=== PATIENT | male | born 1970 | race Caucasian/White ===

== ENCOUNTER 2018-11-15 21:53 | Emergency (ER) | payer SELFPAY ==
--- NOTE | 2018-11-15 22:14 | Emergency Department Report ---
ED General Adult HPI - General Stated complaint: LT TESTICULAR SWELLING AND PAIN Time Seen by Provider: 11/15/18 22:10 - History of Present Illness Initial comments: 48-year-old male with no past medical history presents with a complaint of left testicular swelling. Patient states he's noticed testicular swelling for the past 6 months. Patient states that he's had increasing pain however over the past 24 hours. Patient states he has only taken Tylenol without relief. Patient denies any hematuria or dysuria. Patient states that when he feels the pain feels a tightness in his left lower extremity. Patient denies any fever or chills or vomiting. 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 - Related Data Previous Rx's Medication Instructions Recorded Last Taken Type traMADol [Ultram] 50 mg PO Q6HR PRN #20 tablet 11/16/18 Unknown Rx Allergies Allergy/AdvReac Type Severity Reaction Status Date / Time No Known Allergies Allergy Unverified 11/15/18 22:08 ED Review of Systems ROS: Stated complaint: LT TESTICULAR SWELLING AND PAIN Other details as noted in HPI Constitutional: denies: chills, fever Eyes: denies: eye pain, eye discharge, vision change ENT: denies: ear pain, throat pain Respiratory: denies: cough, shortness of breath, wheezing Cardiovascular: denies: chest pain, palpitations Endocrine: no symptoms reported Gastrointestinal: denies: abdominal pain, nausea, diarrhea Genitourinary: testicular pain Musculoskeletal: denies: back pain, joint swelling, arthralgia Skin: denies: rash, lesions Neurological: denies: headache, weakness, paresthesias Psychiatric: denies: anxiety, depression Hematological/Lymphatic: denies: easy bleeding, easy bruising ED Past Medical Hx - Medications Home Medications: Home Medications Medication Instructions Recorded Confirmed Last Taken Type traMADol [Ultram] 50 mg PO Q6HR PRN #20 tablet 11/16/18 Unknown Rx ED Physical Exam - General General appearance: alert, other (mildly uncomfortable;) - Head Head exam: Present: atraumatic, normocephalic - Eye Eye exam: Present: normal appearance - ENT ENT exam: Present: mucous membranes moist - Neck Neck exam: Present: normal inspection - Respiratory Respiratory exam: Present: normal lung sounds bilaterally. Absent: respiratory distress - Cardiovascular Cardiovascular Exam: Present: regular rate, normal rhythm. Absent: systolic murmur, diastolic murmur, rubs, gallop - GI/Abdominal GI/Abdominal exam: Present: soft, normal bowel sounds - Rectal Rectal exam: Present: deferred - exam: Present: scrotal swelling (irreducible hernia present in left inguinal region leading to testicle) - Extremities Exam Extremities exam: Present: normal inspection - Back Exam Back exam: Present: normal inspection - Neurological Exam Neurological exam: Present: alert, oriented X3 - Psychiatric Psychiatric exam: Present: normal affect, normal mood - Skin Skin exam: Present: warm, dry, intact, normal color. Absent: rash ED Course Vital Signs 11/15/18 11/16/18 11/16/18 22:09 00:42 00:57 Temperature 98.2 F Blood Pressure 132/85 122/83 11/16/18 11/16/18 11/16/18 01:12 01:27 01:57 Temperature Blood Pressure 126/74 124/80 118/80 11/16/18 11/16/18 11/16/18 02:12 02:27 02:42 Temperature Blood Pressure 127/58 122/71 115/73 ED Medical Decision Making - Lab Data Result diagrams: 11/15/18 22:54 11/15/18 22:54 - Medical Decision Making Patient received [place] for pain relief. Patient feels improved. Patient to be discharged to follow up with urology as an outpatient. - Differential Diagnosis Testicular Torsion; Epididymitis; Critical care attestation.: If time is entered above; I have spent that time in minutes in the direct care of this critically ill patient, excluding procedure time. ED Disposition Clinical Impression: Hydrocele Disposition: DC-01 TO HOME OR SELFCARE Is pt being admited?: No Does the pt Need Aspirin: No Condition: Stable Instructions: Hydrocele (ED), Testicle Pain (ED) Prescriptions: traMADol [Ultram] 50 mg PO Q6HR PRN #20 tablet PRN Reason: Pain Time of Disposition: 04:44 Print Language: AZERI
[2018-11-15] MEDS ORDERED: NORCO 5/325 PO ONE (22:44)
[2018-11-15 23:07] LABS: Hematocrit 40.4 % (35.5-45.6); Hemoglobin 13.6 gm/dl (11.8-15.2); Mean Corpuscular HGB Conc 34 % (32-34); Mean Corpuscular Hemoglobin 32 pg (28-32); Mean Corpuscular Volume 96 fl (84-94); Platelet Count 193 K/mm3 (140-440); Red Blood Count 4.22 M/mm3 (3.65-5.03); Red Cell Distribution Width 13.2 % (13.2-15.2)
[2018-11-15 23:18] LABS: INR 1.02 (0.87-1.13)
[2018-11-15 23:21] LABS: Partial Thromboplastin Time 28.1 Sec. (24.2-36.6)
[2018-11-15 23:23] LABS: Alanine Aminotransferase 30 units/L (7-56); Albumin 3.9 g/dL (3.9-5); BUN/Creatinine Ratio 24; Blood Urea Nitrogen 12 mg/dL (9-20); Calcium 8.8 mg/dL (8.4-10.2); Hemolysis Index 8
--- NOTE | 2018-11-16 01:03 | Cat Scan Report ---
CT ABDOMEN AND PELVIS WITHOUT CONTRAST HISTORY: Lower abdominal pain. Left groin pain for 6 months. Worsening pain this past week. COMPARISON: No relevant prior imaging study available. TECHNIQUE: Axial, coronal and sagittal CT imaging of the abdomen and pelvis was performed without IV contrast. Lack of intravenous contrast limits evaluation of the vascular and solid organs. Oral con trast was administered. All CT scans at this location are performed using CT dose reduction for ALARA by means of automated exposure control. FINDINGS: LOWER CHEST: No significant abnormality. LIVER: No significant abnormality. BILIARY: No significant abnormality. PANCREAS: No significant abnormality. SPLEEN: No significant abnormality. ADRENALS: No significant abnormality. KIDNEYS AND URETERS: No significant abnormality. GI TRACT: No significant abnormality of the stomach, small bowel or colon. Unremarkable appendix. PERITONEUM: No free fluid. No free air. No fluid collection. LYMPH NODES: No significant adenopathy. VASCULATURE: No significant abnormality. URINARY BLADDER: No significant abnormality. REPRODUCTIVE ORGANS: There is a large left hydrocele and a small right hydrocele. ADDITIONAL FINDINGS: No additional significant abnormality is noted along the left groin or elsewhere in the abdomen or pelvis. SKELETAL SYSTEM: No acute abnormality. Degenerative changes are seen throughout the spine. IMPRESSION: 1. Large left hydrocele and small right hydrocele. 2. No additional acute abnormality is seen to explain the patient's pain. Signer Name: Jose Gonsalves MD Signed: 11/16/2018 12:59 AM Workstation Name: [id number]
[2018-11-16 01:13] LABS: Bilirubin,Urine NEG (Negative); Blood,Urine MOD (Negative); Color,Urine Yellow (Yellow); Mucus,Urine FEW /HPF; Protein,Urine <15 mg/dL mg/dL (Negative); Urobilinogen,Urine < 2.0 mg/dL (<2.0); WBC,Urine < 1.0 /HPF (0.0-6.0)
[2018-11-16 02:43] VITALS: BP 115/73
--- NOTE | 2018-11-16 03:49 | Ultrasound Report ---
ULTRASOUND SCROTUM INDICATION: Scrotal swelling for 6 months. Left testicular pain. COMPARISON CT of the abdomen and pelvis without contrast from earlier today. FINDINGS -- RIGHT TESTIS: Size: 3.9 x 2.6 x 2.7 cm. Echotexture: Normal. Color Doppler Flow: Normal. Lesions: None. EPIDIDYMIS: Not identified. Hydrocele: None. Varicocele: None. Additional Findings: None. FINDINGS -- LEFT TESTIS: Size: 4.6 x 2.1 x 2.6 cm. Echotexture: Normal. Color Doppler Flow: Normal. Lesions: None. EPIDIDYMIS: Not visualized. Hydrocele: Large. Varicocele: None. Additional Findings: None. IMPRESSION: Large left hydrocele. Signer Name: Jose Gonsalves MD Signed: 11/16/2018 3:44 AM Workstation Name: [id number]
== END 2018-11-16 05:25 | disposition home or self-care (01) ==
LOC: ED 21:53
DX: N43.3 Hydrocele, unspecified (principal)
CPT/HCPCS: 36415; 74176; 76870; 80053; 81001; 85027; 85610; 85730